=== PATIENT | male | born 1985 | race Caucasian/White ===

== ENCOUNTER 2017-01-06 05:33 | Emergency (ER) | payer OTHER ==
[~2017-01-06] VITALS: Ht 167.6 cm; Wt 62.0 kg
[~2017-01-06 05:33] MED LIST: ACYC800T PO; BACT800T5 PO; CEPH500C3 PO; MOTR200T PO
[2017-01-06 05:35] VITALS: BP 130/85; PULSE 73; RESP 16; TEMP 98.9; O2SAT 98
[2017-01-06] MEDS ORDERED: AMOX500C PO (05:48)
[2017-01-06] MEDS ORDERED: DICL50TA3 PO (05:48)
--- NOTE | 2017-01-06 05:51 | PD ---
HPI Chief Complaint: Oral / Dental Pain or Problem Time Seen by Provider: 05:49 Travel History International Travel<30 days: No Contact w/Intl Traveler<30days: No Traveled to known affect area: No History of Present Illness HPI 31-year-old white male presents to emergency Department with complaints of dental pain. He states that he's had problems with wisdom teeth on the right lower mandible for several months. This can worse this evening. He states that he is unable to sleep due to pain. He denies any fever chills. No facial swelling. Symptoms are moderate. No alleviating factors. [facility] Past Medical History Narrative Medical Folliculitis, hepatitis C Tetanus Vaccination: < 5 Years Past Surgical History Surgical History: No Previous Surgery Social History Alcohol Use: Yes Tobacco Use: Yes Allergies-Medications (Allergen,Severity, Reaction): Coded Allergies: No Known Allergies (Unverified , 01/06/17) Reported Meds & Prescriptions Reported Meds & Active Scripts Active No Active Prescriptions or Reported Medications Review of Systems Except as stated in HPI: all other systems reviewed are Neg Physical Exam Narrative GENERAL: Well-developed, well-nourished in no acute distress. Nontoxic appearing. HEAD: Normocephalic, atraumatic. EYES: Pupils equal round and reactive. Extraocular motions intact. No scleral icterus. No injection or drainage. ENT: TMs clear without erythema. The external auditory canals clear. Nose: clear . Posterior pharynx is pink and moist. No tonsillar edema or exudate. Uvula midline. Airway patent. The patient has impacted tooth #32 NECK: Trachea midline.Supple, nontender, moves head freely. No central bony tenderness or spasm. CARDIOVASCULAR: Regular rate and rhythm without murmurs, gallops, or rubs. RESPIRATORY: Clear to auscultation. Breath sounds equal bilaterally. No wheezes , rales, or rhonchi. GASTROINTESTINAL: Abdomen soft, non-tender, nondistended. No hepato-splenomegaly , or palpable masses. No guarding. EXTREMITIES: No clubbing, cyanosis, or edema. No joint tenderness, effusion, or edema noted. BACK: Nontender without deformity or crepitance. No flank tenderness. Data Data Last Documented VS Vital Signs Date Time Temp Pulse Resp B/P Pulse Ox O2 Delivery O2 Flow Rate FiO2 01/06/17 05:35 98.9 73 16 130/85 98 Room Air MDM Medical Decision Making Medical Screen Exam Complete: Yes Emergency Medical Condition: Yes Medical Record Reviewed: Yes Differential Diagnosis MDM: Moderate Differential diagnoses: Dental abscess, dental caries, osteitis, cellulitis Narrative Course This is dentalgia, impacted wisdom tooth. Patient given Motrin 800 and amoxicillin 500 by mouth Diagnosis Primary Impression: Dentalgia Additional Impression: impacted wisdom tooth Patient Instructions: Moderate Sedation in Children (ED) Additional Instructions: Rest. [place] gargles. [place] oil on cotton balls. Amoxicillin and diclofenac. follow-up with a dentist as soon as possible. And return to the ER if any problems. Med/Other Pt SpecificInfo: Prescription(s) given Scripts Diclofenac Sodium DR 50 Mg Tabdr50 Mg PO TID #21 TAB Prov:Calderon Albert MD 01/06/17 Amoxicillin 500 Mg [id number] Mg PO TID #30 CAP Prov:Calderon Albert MD 01/06/17 Disposition: 01 DISCHARGE HOME Condition: Stable Wilner Bates January 06, 2017 05:51
[2017-01-06] MEDS ORDERED: IBUPROFEN 800 MG TAB PO ONE (06:00)
[2017-01-06] MEDS ORDERED: AMOXICILLIN (TRIHYDRATE) 500 MG CAP PO ONE (06:00)
== END 2017-01-06 06:16 | disposition home or self-care (01) ==
LOC: NEPD 05:33
DX: K08.89 Other specified disorders of teeth and supporting structures (principal); K01.1 Impacted teeth; B19.20 Unspecified viral hepatitis C without hepatic coma; Z72.0 Tobacco use
CPT/HCPCS: 99282

== ENCOUNTER 2017-02-16 00:26 | Emergency (ER) | payer OTHER ==
[~2017-02-16] VITALS: Ht 167.6 cm; Wt 68.0 kg
[~2017-02-16 00:26] MED LIST changes: -ACYC800T PO; +AMOX500C PO; -BACT800T5 PO; -CEPH500C3 PO; +DICL50TA3 PO; -MOTR200T PO
[2017-02-16 00:27] VITALS: BP 125/86; PULSE 66; RESP 20; O2SAT 99
[2017-02-16 00:28] VITALS: TEMP 98
[2017-02-16] MEDS ORDERED: IBUPROFEN 800 MG TAB PO ONE (00:45)
[2017-02-16] MEDS ORDERED: IBUP800T23 PO (00:47)
--- NOTE | 2017-02-16 00:47 | PD ---
HPI Chief Complaint: Oral / Dental Pain or Problem Time Seen by Provider: 00:42 Travel History International Travel<30 days: No Contact w/Intl Traveler<30days: No Traveled to known affect area: No History of Present Illness HPI Patient is a 31-year-old male presenting to emergency department for evaluation of wisdom teeth pain. He states this has been ongoing and intermittent for several months. He reports being evaluated by a dentist and the cost to remove them would be $2200 dollars. He states for the last several hours he's had increasing pain. He reports the pain is 8 out of 10. He has not taken anything to alleviate the pain. [facility] Past Medical History Medical History: Denies Significant Hx Social History Alcohol Use: Yes Tobacco Use: Yes Allergies-Medications (Allergen,Severity, Reaction): Coded Allergies: No Known Allergies (Unverified , 01/06/17) Reported Meds & Prescriptions Reported Meds & Active Scripts Active Diclofenac Sodium DR (Diclofenac Sodium) 50 Mg Tabdr 50 Mg PO TID Amoxicillin 500 Mg Cap 500 Mg PO TID Review of Systems Except as stated in HPI: all other systems reviewed are Neg HENT: Positive: Dental Difficulties Physical Exam Narrative GENERAL: Well-nourished, well-developed patient. SKIN: Focused skin assessment warm/dry. HEAD: Normocephalic. EYES: No scleral icterus. No injection or drainage. MOUTH: Mucous membranes moist, no lesions, tongue and gums appear normal. NECK: Supple, trachea midline. No JVD or lymphadenopathy. CARDIOVASCULAR: Regular rate and rhythm without murmurs, gallops, or rubs. RESPIRATORY: Breath sounds equal bilaterally. No accessory muscle use. Data Data Last Documented VS Vital Signs Date Time Temp Pulse Resp B/P Pulse Ox O2 Delivery O2 Flow Rate FiO2 02/16/17 00:28 98.0 02/16/17 00:27 66 20 125/86 99 Room Air MDM Medical Decision Making Medical Screen Exam Complete: Yes Emergency Medical Condition: Yes Interpretation(s) Vital Signs Date Time Temp Pulse Resp B/P Pulse Ox O2 Delivery O2 Flow Rate FiO2 02/16/17 00:28 98.0 02/16/17 00:27 66 20 125/86 99 Room Air Differential Diagnosis Dentalgia versus nerve pain versus abscess versus other Narrative Course Patient is a 31-year-old male presenting for evaluation of pain in his wisdom teeth. This is been ongoing for several months with intermittent exacerbations. Patient does not have any obvious signs of dental abscess or infection. Patient was advised to follow-up with a dentist, he will be given a list of local dental clinics. He was encouraged take anti-inflammatory medication as needed and as directed. He reports having a prescription for antibiotics that he was prescribed last month for the same pain waiting now at the pharmacy to be picked up. Discussed with patient that the pain could be coming from nerve irritation and not an infection. He would benefit from continued evaluation from a dentist. He verbalized understanding of instructions. Patient is stable for discharge. Diagnosis Primary Impression: Dentalgia Referrals: Dentist Patient Instructions: General Instructions, Toothache (ED) Additional Instructions: Follow-up with a dentist for further evaluation management Take medications as directed Return to emergency department for any new or worsening symptoms Med/Other Pt SpecificInfo: Prescription(s) given Scripts Ibuprofen 800 Mg [id number] Mg PO Q6HR PRN (PAIN) #40 TAB Ref 0 Prov:Jessy Orozco 02/16/17 Disposition: 01 DISCHARGE HOME Condition: Stable Jessy Orozco Feb 16, 2017 00:47
== END 2017-02-16 01:09 | disposition home or self-care (01) ==
LOC: NEPK 00:26
DX: K08.89 Other specified disorders of teeth and supporting structures (principal); Z72.0 Tobacco use
CPT/HCPCS: 99283